=== PATIENT | male | born 1970 | race Caucasian/White ===

== ENCOUNTER 2025-04-19 15:55 | Emergency (ER) | payer OTHER ==
[~2025-04-19] VITALS: Ht 165.1 cm; Wt 75.7 kg
[2025-04-19] MEDS ORDERED: KETOROLAC TROMETHAMINE 30 MG INJ ONE (19:03)
[2025-04-19] MEDS ORDERED: ONDANSETRON 4 MG/2 ML VIAL ONE (19:03)
[2025-04-19] MEDS: ONDANSETRON 4 MG/2 ML VIAL IV ONE (19:03)
[2025-04-19] MEDS: KETOROLAC TROMETHAMINE 30 MG INJ IVP ONE (19:03)
[2025-04-19 19:12] LABS: PLATELET COUNT (AUTO) 246 K/uL (179-408); RED BLOOD CELL COUNT(AUTO) 5.49 MIL/uL (3.63-4.92); RED CELL DISTRIBUTION WIDTH 13.9 % (12.3-17.7); WHITE BLOOD COUNT (AUTO) 10.6 K/uL (3.8-11.8)
[2025-04-19 19:35] LABS: CREATININE 0.9 mg/dL (0.6-1.3); SODIUM SERUM 143.0 mmol/L (136-145); UREA NITROGEN, BLOOD 16.0 mg/dL (7-18)
[2025-04-19 19:47] LABS: LACTIC ACID 2.8 mmol/L (0.4-2.0)
[2025-04-19 19:49] LABS: ASPARTATE AMINOTRANSFERASE 17.0 U/L (15-37); TOTAL PROTEIN, SERUM 8.0 g/dL (6.4-8.2)
[2025-04-19 22:32] LABS: *BILIRUBIN,URIN NEGATIVE (NEGATIVE); *BLOOD, URINE NEGATIVE (NEGATIVE); *COLOR,URINE YELLOW (YELLOW); *KETONES,URINE NEGATIVE (NEGATIVE); *PROTEIN,URINE 2+ (NEGATIVE); *UROBILINOGEN,URINE 0.2 E.U./dl (NORMAL); LEUKOCYTE ESTERASE ,URINE NEGATIVE (NEGATIVE); NITRITE, URINE NEGATIVE (NEGATIVE); UGLUCOSE NEGATIVE (NEGATIVE)
[2025-04-19 22:34] LABS: *CLARITY,URINE HAZY (CLEAR)
[2025-04-19 22:59] LABS: URINE AMORPHOUS URATE MODERATE /HPF
[2025-04-19] MEDS ORDERED: CEFTRIAXONE /D5W 50ML IVPB **ER PYXIS IV ONE (23:42)
[2025-04-19] MEDS: IV NS 1000 ML 1,000 ML IV ONE (23:43)
[2025-04-20] MEDS: IV NS 1000 ML 1,000 ML IV ONE (00:34)
[2025-04-20] MEDS ORDERED: LEVO500T90 PO (01:40)
[2025-04-20] MEDS ORDERED: ONDA4TAB5 PO (01:40)
[2025-04-20] MEDS ORDERED: CEFTRIAXONE /D5W 50ML IVPB **ER PYXIS IV ONE (01:44)
[2025-04-20 02:00] VITALS: BP 159/97
[2025-04-20 03:16] VITALS: BP 145/95; TEMP 98; O2SAT 98
[2025-04-22 02:07] LABS: CHLAMYDIA TRACHOMATIS NAA Negative (Negative); NEISSERIA GONORRHOEAE NAA Negative (Negative)
== END 2025-04-20 03:19 | disposition home or self-care (01) ==
LOC: ER 15:55 → EDSEX 15:55 → ER 04-20 03:19
DX: R11.2 Nausea with vomiting, unspecified (principal); R10.9 Unspecified abdominal pain; R19.7 Diarrhea, unspecified
CPT/HCPCS: 99285; 74176; 96365; 96375; 80053; 81001; 82248; 83690; 85025; 87040; 87086; 36415; 83605 ×2; 96366; 87491; 87591; J1885; J0696 ×2; J2405; J7040 ×2; A4606; A4663